=== PATIENT | male | born 1985 | race Hispanic/Latino ===

== ENCOUNTER 2021-01-09 10:46 | Emergency (ER) | payer BC ==
--- NOTE | 2021-01-09 11:06 | Emergency Department Report ---
ED Chest Pain HPI - General Chief Complaint: Chest Pain Stated Complaint: CHEST PAIN Time Seen by Provider: 01/09/21 10:55 Source: patient Mode of arrival: Stretcher Limitations: No Limitations - History of Present Illness Initial Comments: 35-year-old male, no past medical history, presents to ED with report of chest pain. 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 Patient was not actually training himself, he was not exerting himself at all. He reports left-sided pr essure, nonradiating, with associated nausea and diaphoresis, now resolved. Patient denies any shortness of breath, leg pain or swelling, cough, fever. Patient reports he does [employer] training. Patient states over the last 2 to 3 weeks, he has noticed during his workouts he has been having episodes where he is feeling dizzy and lightheaded. He denies any immediate family history of heart disease, however, he does report a cousin who had an AR at the age of 29. Patient denies tobacco use, reports social use. Patient has not yet received his COVID-19 vaccine. MD Complaint: chest pain -: This morning Onset: during rest Pain Location: left chest Pain Radiation: none Severity: moderate Quality: pressure Consistency: now resolved Improves With: nothing Worsens With: nothing re: nausea, diaphoresis. denies: dyspnea Other Symptoms: denies: cough, fever, leg swelling Treatments Prior to Arrival: none - Related Data Allergies Allergy/AdvReac Type Severity Reaction Status Date / Time No Known Allergies Allergy Unverified 01/09/21 11:00 Heart Score - HEART Score History: Moderately suspicious EKG: Normal Age: < 45 Risk factors: No known risk factors Troponin: < normal limit HEART Score: 1 - EKG Read Time Time EKG Completed: 11:05 EKG Read Time: 11:06 ED Review of Systems ROS: Stated complaint: CHEST PAIN Other details as noted in HPI Comment: All other systems reviewed and negative Constitutional: denies: chills, fever Respiratory: denies: cough, shortness of breath Cardiovascular: chest pain Gastrointestinal: nausea. denies: vomiting Musculoskeletal: other (Denies leg pain or swelling) Neurological: other (Reports dizziness) ED Past Medical Hx - Past Medical History Previous Medical History?: No - Surgical History Past Surgical History?: No ED Physical Exam - General Limitations: No Limitations General appearance: alert, in no apparent distress - Head Head exam: Present: atraumatic, normocephalic - Eye Eye exam: Present: normal appearance, EOMI - ENT ENT exam: Present: mucous membranes moist - Neck Neck exam: Present: normal inspection - Respiratory Respiratory exam: Present: normal lung sounds bilaterally. Absent: respiratory distress - Cardiovascular Cardiovascular Exam: Present: regular rate, normal rhythm - GI/Abdominal GI/Abdominal exam: Present: soft. Absent: distended, tenderness - Extremities Exam Extremities exam: Present: normal inspection - Neurological Exam Neurological exam: Present: alert, oriented X3 - Psychiatric Psychiatric exam: Present: normal affect, normal mood - Skin Skin exam: Present: warm, dry, intact, normal color ED Course Vital Signs 01/09/21 01/09/21 01/09/21 10:58 11:00 11:23 Temperature 98.2 F Pulse Rate 67 Respiratory 12 12 Rate Blood Pressure 119/84 O2 Sat by Pulse 100 Oximetry 01/09/21 01/09/21 01/09/21 11:25 11:30 12:00 Temperature Pulse Rate 70 66 Respiratory 18 13 11 L Rate Blood Pressure 136/92 139/67 O2 Sat by Pulse 98 100 99 Oximetry 01/09/21 01/09/21 01/09/21 12:16 12:30 13:00 Temperature Pulse Rate 72 67 63 Respiratory 11 L 22 16 Rate Blood Pressure 119/84 103/59 102/60 O2 Sat by Pulse 99 99 99 Oximetry ED Medical Decision Making - Lab Data Result diagrams: 01/09/21 11:18 01/09/21 11:18 - EKG Data -: EKG Interpreted by Ut EKG shows normal: sinus rhythm, axis, intervals, QRS complexes, ST-T waves Rate: normal - EKG Data Interpretation: no acute changes - Radiology Data Radiology results: report reviewed, image reviewed - Medical Decision Making 35-year-old male presents to ED with nonexertional chest pain. EKG is unremarkable. Troponin is negative x2. D-dimer is within normal limits. Chest x-ray is normal. Patient is currently chest pain-free. Patient has heart score of 1. He is comfortable with discharge at this time. Information has been faxed to [facility] so that patient will have urgent cardiology follow-up. Return precautions given. - Differential Diagnosis ACS, PE, atypical chest pain Critical care attestation.: If time is entered above; I have spent that time in minutes in the direct care of this critically ill patient, excluding procedure time. ED Disposition Clinical Impression: Chest pain Disposition: DC-01 TO HOME OR SELFCARE Is pt being admited?: No Condition: Stable Instructions: Nonspecific Chest Pain, Adult Referrals: PRIMARY CARE, [Primary Care Provider] - 3-5 Days Time of Disposition: 15:03
[2021-01-09] MEDS ORDERED: ASPIRIN 325 MG TAB PO ONE (11:07)
--- NOTE | 2021-01-09 11:31 | XRay Report ---
CHEST 1 VIEW INDICATION: chest pain. COMPARISON: None. FINDINGS: Support devices: None. Heart: Normal. Lungs/Pleura: No acute pulmonary or pleural findings. 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 IMPRESSION: 1. No acute findings. Signer Name: Amari Sung MD Signed: 01/09/2021 11:26 AM Workstation Name: [id number]
[2021-01-09 11:43] LABS: Basophils % (Auto) 0.4 % (0.0-1.8); Eosinophils # (Auto) 0.1 K/mm3 (0.0-0.4); Eosinophils % (Auto) 1.4 % (0.0-4.3); Hematocrit 42.6 % (35.5-45.6); Hemoglobin 14.7 gm/dl (11.8-15.2); Lymphocytes # (Auto) 1.3 K/mm3 (1.2-5.4); Lymphocytes % (Auto) 25.1 % (13.4-35.0); Mean Corpuscular HGB Conc 35 % (32-34); Mean Corpuscular Volume 93 fl (84-94); Monocytes # (Auto) 0.5 K/mm3 (0.0-0.8); Monocytes % (Auto) 9.2 % (0.0-7.3); Platelet Count 258 K/mm3 (140-440); Red Blood Count 4.58 M/mm3 (3.65-5.03); Red Cell Distribution Width 12.3 % (13.2-15.2)
[2021-01-09 11:53] LABS: INR 1.07 (0.87-1.13)
[2021-01-09 11:54] LABS: Partial Thromboplastin Time 25.6 Sec. (24.2-36.6)
[2021-01-09 12:13] LABS: Alanine Aminotransferase 19 units/L (7-56); Albumin 4.1 g/dL (3.9-5); BUN/Creatinine Ratio 9; Blood Urea Nitrogen 10 mg/dL (9-20); Calcium 8.8 mg/dL (8.4-10.2); Hemolysis Index 13
[2021-01-09 13:13] VITALS: BP 102/60
--- NOTE | 2021-01-11 10:42 | Electrocardiograph Report ---
[facility] Test Date: 2021-01-09 Test Time: 11:05:07 Pat Name: ROSENDO ATKINS Department: Room: Gender: M Global Cto: ROSA M : 1985 Requested By: CORKY COLE Order Number: [id number] Reading MD: Raad Jaimes Measurements Intervals [place] Rate: 63 P: 62 AL: 188 QRS: -12 QRSD: 96 T: 36 QT: 381 QTc: 390 Interpretive Statements Sinus rhythm Probable left atrial enlargement No previous ECG available for comparison Electronically Signed On 01-11-2021 10:41:47 EDT by Raad Jaimes
== END 2021-01-09 15:28 | disposition home or self-care (01) ==
LOC: ED 10:46
DX: R07.9 Chest pain, unspecified (principal)
CPT/HCPCS: 36415; 71045; 80053; 83690; 84484; 85025; 85379; 85610; 85730; 93005